=== PATIENT | female | born 1960 | race Caucasian/White ===

== ENCOUNTER 2020-07-23 05:01 | Observation (INO) | payer OTHER, MEDICAID, SELFPAY ==
[2020-07-23] VITALS (11 sets, daily range): BP systolic 110–133; BP diastolic 58–76; PULSE 64–71; RESP 15–18; TEMP 36.1–36.6; O2SAT 96–99; BMI 30.8
--- NOTE | 2020-07-23 05:08 | DI.RAD.S_ITS ---
PROCEDURE: [place] SMALL BOWEL FOLLOW THROUGH INDICATIONS: small bowel obstruction. Perform with gastrografin COMPARISON: None. FINDINGS: Contrast is seen within the stomach at the 4 hour time point. There are multiple opacified small bowel loops, which appear dilated measuring up to 4.7 cm in diameter. Contrast does appear within the right colon by the 4 hour time point, however findings are suspicious for partial or developing distal small bowel obstruction. Incidentally noted residual IV contrast seen within the bladder. Right upper quadrant surgical clips IMPRESSION: Partial/developing distal small bowel obstruction. This was personally discussed by telephone with the patient's nurse on the floor 1354 hours on 07/23/20 Dictated by: Benjamin Bunn M.D. on 07/23/2020 at 13:52 Approved by: Benjamin Bunn M.D. on 07/23/2020 at 14:05
[2020-07-23] MEDS: SODIUM CHLORIDE 0.9% 1,000 ML 100 ML IV ×2 (07:21→16:57)
[2020-07-23] MEDS: ONDANSETRON 4 MG/2 ML INJ IV ×3 (07:48→20:05)
[2020-07-23] MEDS: MORPHINE 2 MG/ML INJ IV ×3 (07:54→20:32)
[2020-07-23] MEDS: KETOROLAC 30 MG/ML VIAL IV ×3 (08:44→23:22)
--- NOTE | 2020-07-23 10:16 | P.HP_ITS ---
History of Present Illness History of Present Illness Date Patient Seen: 07/23/20 Time Patient Seen: 10:16 Chief complaint: SBO Narrative: 6-year-old female history of ovarian cancer transferred from an outside hospital for management of a small-bowel obstruction. She underwent a radical hysterectomy 2015 followed by chemo and radiation. She presented with abdominal pain primarily the right lower quadrant associated with nausea and emesis. His she went to an outside emergency room CT of the abdomen pelvis demonstrated a small-bowel obstruction with a transition point in the right lower quadrant there was no free air. Who currently she is feeling better with anti medics and has had no emesis since arrival. No history of prior small- bowel obstruction. Patient History Medical History (Updated 07/23/20 @ 10:19 by Earnest Spencer MD) Obesity Ovarian cancer Surgical History (Updated 07/23/20 @ 10:19 by Earnest Spencer MD) History of cholecystectomy Family & Social History Social History: household members spouse Prior Living Arrangements Mobile home Safety & Behavioral: Feels Safe in Current Yes Environment Been Physically Hurt or No Threatened By a Person Suicidal Ideation Description None Suicide Plan Description No Plan Tobacco & Substance use: Smoking Status Never smoker alcohol intake current alcohol intake frequency holiday/special occasion Meds Home Medications and Allergies Allergies Allergy/AdvReac Type Severity Reaction Status Date / Time sulfur [From Sulfur-8] Allergy Mild Abdominal Verified 07/23/20 07:05 Pain Review of Systems Review of Systems ROS: Yes All systems reviewed with the patient and are negative except as otherwise documented Exam Vital Signs (past 8 hours): - 07/23/20 05:06 07/23/20 06:53 07/23/20 08:00 Temperature 96.9 F L 97.6 F Pulse Rate 68 64 Respiratory Rate 18 15 Blood Pressure 123/76 111/71 Pulse Oximetry 99 99 97 Oxygen Delivery Method Room Air Oxygen Flow Rate 0 Narrative Exam Narrative: GENERAL-well developed adult female, no acute distress HEENT-no scleral icterus, hearing intact NECK-no JVD, trachea midline CVS- regular rate, no peripheral edema RESP-unlabored respiratory effort, no audible wheezing GI-moderately distended, mildly tender no peritonitis MSK-no cyanosis or clubbing, extremities without deformity SKIN-warm, dry NEURO-alert and oriented, no focal deficits PYSCH-Appropriate mood and affect Assessment & Plan Assessment & Plan narrative: 60-year-old female history of ovarian cancer status post radical hysterectomy with chemo and radiation here with a small-bowel obstruction. Afebrile no peritonitis, no free air, no immediate indication for surgical intervention. proceed with conservative, nonoperative management of a small-bowel obstruction. We discussed the nature of small-bowel obstruction its causes and its treatment, including both nonoperative and operative management. -NPO -IV fluid -Gastrografin small-bowel follow-through -SCDs and Lovenox for VT prophylaxis Quality VTE Deep Vein Thrombosis/Pulmonary Embolism Present on Admission: No
--- NOTE | 2020-07-23 11:14 | CM.DANOTE ---
DCP ASSESSMENT: Patient is a 60 year-old female admitted to the hospital with a small bowel obstruction. PCP is Brown Hnasen. Primary Payer [facility] and Medicaid. 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 Per patient she is independent with all ADL?s at baseline. She is currently is NPO and pending small bowel work up. Patient anticipates D/C home with Fermin to provide transportation. Currently patient is requiring IV pain and nausea medication. Dr. Spencer is attending. Surgery unknown at this time? PLAN: Anticipate home when medically stable. CM Team to continue to follow. JEANNIE Zuñiga MSW Student Discharge Planning/Care Management CM Discharge Assessment Start: 07/23/20 09:58 Freq: Status: Active Protocol: Document 07/23/20 09:59 AL (Rec: 07/23/20 10:01 AL [id number]) Discharge Planning Assessment Assigned Banking Supervisor JEANNIE Anderson Student Contact Information Fermin Huertas, Advance Directives? unk History Provided By Patient,Medical Record Has Patient been admitted in last 30 No days? Prior Living Arrangements Mobile home Household Members spouse Type of transporation used prior to Drives own vehicle admit Independent with ADL's Yes Is patient alert and oriented? Yes Caregiver for Another No Barriers to Discharge No Discharge Plan Home Transportation Arrangement will provide transportation at time of D/C Referrals Initiated None needed Whiteboard Updated in Patient Room with Yes name and ext. # of Banking Supervisor Review Status In Process
--- NOTE | 2020-07-23 14:25 | PC.NURSE ---
Pt. A&OX3, pleasant VSS, afebrile on RA. C/O nausea this a.m. No emesis or hiccups today. Abdominal pain/discomfort 4-7/10. Pain well controlled with morhpine and toradol IV PRN. Pt reports nausea improved with zofran x1 today. Received small bowel follow through study at bedside. Per radiologist appears to have an obstruction/ dilated loops. Per MD Spencer will continue to keep patient completely NPO. Pt complaining of dry mouth, RN offered mouth swabs and oral care. This afternoon ambulated x3 laps around nurses station after shower, reports pain discomfort still 4/10 but tolerable after 2mg Morphine IV PRN.
--- NOTE | 2020-07-23 23:49 | PC.NURSE ---
Addendum entered by Ava Garcia R.N. 07/24/20 02:06: up to bathroom and passed liquid stool. States now abdomen feels better and denies any pain currently. Original Note: patient is alert and oriented. Breath sounds CTA with RA sat of 96%. HRR. Denies nausea. BT hypoactive and patient denies any flatus. Is tender in upper quads but soft to palpation. States pain is 2/10 at rest and increases to 7/10 with movement; medicated with Toradol. Is NPO at this time. Denies dysuria, frequency or urgency with urination but UOP has been low and urine is concentrated and cloudy. Is independent with mobility. 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 Also has a numb patch of skin on anterior right thigh which is also chronic. Wearing bilateral calf SCD's. Fall risk score is low.
[2020-07-24] MEDS: SODIUM CHLORIDE 0.9% 1,000 ML 100 ML IV (02:44)
[2020-07-24 03:55] VITALS: BP 114/64; PULSE 68; RESP 18; TEMP 36.3; O2SAT 96
[2020-07-24 05:23] LABS: Add Manual Diff / Slide Review NO; Basophils Absolute Auto 0 /uL (0-100); Basophils Percent Auto 0.5 % (0-2); Eosinophils Absolute Auto 100 /uL (0-450); Eosinophils Percent Auto 0.9 % (2-4); Hematocrit 39.5 % (36-46); Hemoglobin 13.4 g/dL (12.0-16.0); Lymphocytes Absolute Auto 1000 /uL (1100-4500); Lymphocytes Percent Auto 15.6 % (25-40); Mean Corpuscular HGB Conc 33.8 % (30-36); Mean Corpuscular Hemoglobin 30.9 PG (26-34); Mean Corpuscular Volume 91.3 fL (80-100); Monocytes Absolute Auto 600 /uL (0-900); Neutrophils Absolute Auto 4600 /uL (1500-7000); Platelet Count 245 X10^3/uL (150-400); Red Blood Cell Count 4.33 X10^6/uL (4.0-5.2); Red Cell Distribution Width 13.5 % (11.6-14.8); White Blood Cell Count 6.3 X10^3/uL (4.5-11.0)
[2020-07-24 05:30] LABS: BUN Creatinine Ratio 26.3 (6-22); Blood Urea Nitrogen 20 mg/dL (7-17); Calcium 8.8 mg/dL (8.4-10.2); Carbon Dioxide 26 mmol/L (22-32); Chloride 111 mmol/L (98-107); Estimated Glomerular Filt Rate > 60.0 mL/min (>60); Glucose 105 mg/dL (80-110); HEMOLYSIS 19 (0-50); Magnesium 2.5 mg/dL (1.6-2.3); Phosphorous 3.3 mg/dL (2.8-4.1); Sodium 144 mmol/L (137-145)
--- NOTE | 2020-07-24 06:00 | DI.RAD.S_ITS ---
PROCEDURE: XR ABDOMEN 1V INDICATIONS: f/u SBFT TECHNIQUE: One view of the abdomen acquired. COMPARISON: [facility], , [place] SMALL BOWEL FOLLOW THROUGH, 07/23/2020, 9:59. FINDINGS: Surgical changes and devices: None. Bowel: Contrast material noted in loops of small bowel in the colon. There are dilated loops of small bowel measuring up to 4.5 centimeters. Soft tissues: No suspicious abdominal calcifications. Visualized solid organ contours appear normal in size. Bones: No suspicious bony lesions. IMPRESSION: Small-bowel obstruction with passage of contrast material into the colon. Dictated by: Celeste Baugh MD, PhD on 07/24/2020 at 8:21 Approved by: Celeste Baugh MD, PhD on 07/24/2020 at 8:23
[2020-07-24 07:18] VITALS: BP 121/65; PULSE 71; RESP 16; TEMP 36.1; O2SAT 95
[2020-07-24 07:35] VITALS: O2SAT 95
--- NOTE | 2020-07-24 12:44 | PC.NURSE ---
Pt discharge education given, discussed- diet, activity, f/u appts, worsening symptoms and s/s of stroke. Pt expressed understanding, all questions answered. IV removed, intact, tolerated well. All belongings packed. Pt left with spouse, via w/c, accompanied by RN, to POV.
== END 2020-07-24 12:45 | disposition home or self-care (01) ==
PROVIDERS: Admitting Provider Surgery; Referring Provider Surgery; Visit Provider Surgery
DX: K56.609 Unspecified intestinal obstruction, unspecified as to partial versus complete obstruction (principal); E66.9 Obesity, unspecified; Z85.43 Personal history of malignant neoplasm of ovary
CPT/HCPCS: 36415; 74018; 74250; 80048; 83735; 84100; 85025; 99218; G0378; G0379; J1885; J2270; J2405